=== PATIENT | male | born 1935 | race Caucasian/White ===

== ENCOUNTER 2019-02-05 06:55 | Inpatient (IN) | payer MEDICARE ==
[~2019-02-05 06:55] MED LIST: CEFAZOLIN 2 Gram 2 GM/50 ML BAG IVPB ONE; CELECOXIB 100 MG CAPSULE PO ONE; FAMOTIDINE 20MG TABLET PO ONE; MECLIZINE 25 MG TABLET PO ONE; METOCLOPRAMIDE 10 MG TABLET PO ONE; VANCOMYCIN 1GM/200ML PREMIX 1 GM/200 ML PIGGYBACK IVPB ONE
[2019-02-05 07:46] LABS: ABO GROUP B; ANTIBODY SCREEN NEGATIVE (NEGATIVE); RH TYPE POSITIVE
[2019-02-05] MEDS ORDERED: RINGERS SOLUTION,LACTATED 1,000 ML IV ONE ×2 (07:55→09:55)
[2019-02-05] MEDS ORDERED: BUPIVACAINE 0.5% W/EPI MPF 30 ML VIAL SQ ONE (09:53)
[2019-02-05] MEDS ORDERED: TRANEXAMIC ACID 1,000 MG/10 ML ML IU ONE (09:53)
[2019-02-05] MEDS ORDERED: BISACODYL 10 MG SUPP RC PRN (12:06)
[2019-02-05] MEDS ORDERED: AL HYDROX/MAG HYDROX 30ML UD PO PRN (12:06)
[2019-02-05] MEDS ORDERED: ZOLPIDEM TARTRATE 5 MG TABLET PO PRN (12:06)
[2019-02-05] MEDS ORDERED: KETOROLAC 30 MG/ML VIAL IVP ONE (12:06)
[2019-02-05] MEDS ORDERED: ONDANSETRON HCL IV 4 MG/2 ML VIAL IVP PRN (12:06)
[2019-02-05] MEDS ORDERED: TRAMADOL HCL 50 MG TABLET PO PRN (12:06)
[2019-02-05] MEDS ORDERED: ACETAMINOPHEN 325 MG TAB PO PRN (12:06)
[2019-02-05] MEDS ORDERED: ACETAMINOPHEN W/ CODEINE 300MG/30MG TABLET PO PRN ×2 (12:06)
[2019-02-05] MEDS ORDERED: DIPHENHYDRAMINE HCL 25 MG CAPSULE PO PRN (12:06)
[2019-02-05] MEDS ORDERED: HYDROMORPHONE HCL 2 MG/ML VIAL IM PRN ×2 (12:06→21:03)
[2019-02-05] MEDS ORDERED: MAGNESIUM HYDROXIDE 30 ML UDC PO PRN (12:06)
[2019-02-05] MEDS ORDERED: NALOXONE 0.4 MG/1 ML VIAL IVP PRN (12:06)
--- NOTE | 2019-02-05 15:45 | Rehab Evaluation ---
Patient Information - Patient Information Diagnosis: R hip OA Ordered Treatment: PT Evaluate and Treat Status: Initial Evaluation Surgery: Yes (THR R) Date of Surgery: 02/05/19 Past Medical/Surgical Hx: PAST MEDICAL/SURGICAL HISTORY Past Surgical History AORTIC VALVE REPLACEMENT 2016 C SCOPES BACK SX'S X'S 2 2002 AND 2007 LUMBAR PMH - Respiratory Hx Respiratory Disorders Yes Hx of SOB Yes: MILD WITH EXERTION PMH - Cardiovascular Hx Cardiovascular Disorders Yes Hx Abnormal EKG Yes Hx Irregular Heartbeat Yes: CONTROLLED WITH AMIODERONE NO THINNERS Hx of Prosthetic Valve Yes: AORTIC 2016 Exercise Tolerance Fair Comment: D/T HIP AND BACK PAIN PMH - Neuro Hx Neurological Disorders No PMH - GI Hx Gastrointestinal Disorders Yes Hx Gastroesophageal Reflux Yes: CONTROLLED WITH MEDS PMH - Hx Genitourinary Disorders Yes Hx Bladder Problem Yes: WEAK STREAM AND FREQUENCY Hx Prostate Problems Yes: POSSIBLY PMH - Endocrine Hx Endocrine Disorders Yes Hx Thyroid Disease Yes PMH - Musculoskeletal Hx Musculoskeletal Disorders Yes Hx Arthritis Yes: RIGHT HIP PMH - Psych Hx Psychiatric Problems No PMH - Hematology/Oncology Hx Hematology/Oncology Yes Disorders Hx Cancer Yes: SKIN Hx Chemotherapy No Hx Radiation Therapy No Premorbid Status: Detail (The patient was independent with all mobility prior to surgery.) Social History: Detail (The patient lives with spouse in a one story house with 4 steps at the enterance with 2 railings. The bathroom is equipped with a walk in shower, hand held shower, elevated toilet seat, shower bench. The patient stated his son is to install grab bars in the tub and there are no grab bars by the toilet. The patient has a front wheeled walker, standard cane, and wheelchair.) Precautions: [place], Fall, Other (WBAT on the R LE, THR precautions.) - Time With Patient Total Time Spent With Patient (Min): 30 Treatment Procedures: Detail (initial evaluation low complexity) Subjective Information - Subjective Information Per Patient (The patient complained of right hip pain but did not rate his pain using 0-10 pain scale.) Objective Data - Mental Status Patient Orientation: Oriented x3 - Visual Perception Appears within normal limits for therapeutic activities - ROM Not within normal limits (The patient's R hip AROM is within THR precautions.) - Strength/Tone Not within normal limits (The patient's R LE strength was not tested but is functional ie: the patient is able to lift R LE in and out of bed and ambulate. The patient's L LE strength is WNL.) - Bed Mobility Independent (The patient is independent with supine to sit. Patient was assisted with sit to supine due to complaints of lightheadedness. The patient was able to partially scoot up in bed but required assistance due to fatigue.) - Transfers Independent (The patient was independent with sit to and from stand transfer.) - Balance Balance Sitting: Good Balance Standing: Good - Sensation Intact - Gait Detail (The patient ambulated with front wheeled walker a distance of 7 feet x 1 , 50 feet x 1 WBAT on the R LE with assist with equipment.) Therapy Assessment - Therapy Assessment Detail (The patient was independent with ambulation and transfers. Feel the patient will progress well with mobility.) Problem List - Problem List Physical Therapy Problem List: Detail (1) Decreased R LE strength 2) Impaired ambulation s/p surgery) Goals - Goals Physical Therapy Goals: 1) The patient will ambulate on stairs with supervision for safety. 2) The patient will be independent with THR HEP and demonstrate good understanding of THR precautions. Prognosis - Prognosis Good Plan - Plan Physical Therapy Plan: PT 1-2 sessions for gait training on stairs and instruction in HEP.
[2019-02-05] MEDS: POTASSIUM CHLORIDE/D5-0.9%NACL 20 MEQ/1,000 ML BAG IV SCH ×2 (16:02→20:43)
[2019-02-05] MEDS: CEFAZOLIN 2 Gram 2 GM/50 ML BAG IVPB SCH (17:34)
[2019-02-05] MEDS: DOCUSATE SODIUM 100 MG CAPSULE PO SCH (21:24)
[2019-02-05] MEDS ORDERED: SIMVASTATIN 20 MG TABLET PO SCH (22:00)
[2019-02-05] MEDS ORDERED: AMIODARONE HCL 200 MG TABLET PO SCH (22:00)
[2019-02-06] MEDS: CEFAZOLIN 2 Gram 2 GM/50 ML BAG IVPB SCH ×2 (01:33→08:30)
[2019-02-06] MEDS: POTASSIUM CHLORIDE/D5-0.9%NACL 20 MEQ/1,000 ML BAG IV SCH ×3 (01:34→13:59)
[2019-02-06] MEDS: ACETAMINOPHEN W/ CODEINE 300MG/60MG TABLET PO PRN ×3 (06:14→15:45)
[2019-02-06 06:41] LABS: HEMATOCRIT 32.1 % (42.0-52.0)
[2019-02-06 06:54] LABS: BLOOD UREA NITROGEN 11 mg/dL (8-23); EST GLOMERULAR FILTRATION RATE > 60 mL/min; GLUCOSE,RANDOM 105 mg/dL (74-109)
[2019-02-06] MEDS ORDERED: PATIENT OWN MED: OMEPRAZOLE 40 MG PO SCH (07:00)
[2019-02-06] MEDS ORDERED: LEVOTHYROXINE 112 MCG PO SCH (07:00)
[2019-02-06] MEDS: DOCUSATE SODIUM 100 MG CAPSULE PO SCH (09:06)
[2019-02-06] MEDS ORDERED: TAMSULOSIN HCL 0.4 MG CAP.ER.24H PO SCH (10:00)
[2019-02-06] MEDS ORDERED: FERROUS SULFATE 325 MG TAB PO SCH (10:00)
[2019-02-06] MEDS ORDERED: RIVAROXABAN 10 MG TABLET PO SCH (10:00)
--- NOTE | 2019-02-06 10:41 | Physical Therapy Tx Note ---
Physical Therapy Tx Note - Treatment Note Tolerated: Good Total Time Spent With Patient: 25 Physical Therapy Tx Note: Detail (The patient was sitting on the edge of the bed when PT arrived. The patient ambulated with front wheeled walker a distance of 75 feet x 1 WBAT on the R LE independently. The patient ambulated on 3 steps with use of one railing and one cane using proper technique with supervision for safety.The patient demonstrated good understanding of THR precautions. The patient's THR HEP was reviewed including: ankle pumps, heel slides, hip abduction sidelying, gluteal sets, quads sets, hamstring sets. The patient has met all inpatient PT goals and is discharged from inpatient PT.) Physical Therapy Problem List: Detail (1) Decreased R LE strength 2) Impaired ambulation s/p surgery) Physical Therapy Goals: 1) The patient will ambulate on stairs with supervision for safety (Goal Met). 2) The patient will be independent with THR HEP and demonstrate good understanding of THR precautions.(Goal Met) Physical Therapy Plan: The patient has met all inpatient PT goals and is discharged from inpatient PT.
[2019-02-06] MEDS ORDERED: **ER** KETAMINE HCL 500MG/10ML VIAL IV ONE (11:08)
[2019-02-06] MEDS ORDERED: GLYCOPYRROLATE 0.2 MG/ML ML IV ONE (11:08)
[2019-02-06] MEDS ORDERED: MIDAZOLAM HCL 2MG/2ML VIAL IV ONE (11:08)
[2019-02-06] MEDS ORDERED: FENTANYL PF 100MCG/2ML VIAL IV ONE (11:08)
[2019-02-06] MEDS ORDERED: PROPOFOL 10 MG/ML VIAL IV ONE (11:08)
[2019-02-06] MEDS ORDERED: LIDOCAINE 2% MDV (20MG/ML) 20ML VIAL IV ONE (11:08)
--- NOTE | 2019-02-06 12:09 | Rehab Evaluation ---
Patient Information - Patient Information Diagnosis: R hip OA Ordered Treatment: OT Evaluate and Treat Status: Initial Evaluation Surgery: Yes (THR R) Date of Surgery: 02/05/19 Past Medical/Surgical Hx: PAST MEDICAL/SURGICAL HISTORY Past Surgical History AORTIC VALVE REPLACEMENT 2016 C SCOPES BACK SX'S X'S 2 2002 AND 2007 LUMBAR PMH - Respiratory Hx Respiratory Disorders Yes Hx of SOB Yes: MILD WITH EXERTION PMH - Cardiovascular Hx Cardiovascular Disorders Yes Hx Abnormal EKG Yes Hx Irregular Heartbeat Yes: CONTROLLED WITH AMIODERONE NO THINNERS Hx of Prosthetic Valve Yes: AORTIC 2016 Exercise Tolerance Fair Comment: D/T HIP AND BACK PAIN PMH - Neuro Hx Neurological Disorders No PMH - GI Hx Gastrointestinal Disorders Yes Hx Gastroesophageal Reflux Yes: CONTROLLED WITH MEDS PMH - Hx Genitourinary Disorders Yes Hx Bladder Problem Yes: WEAK STREAM AND FREQUENCY Hx Prostate Problems Yes: POSSIBLY PMH - Endocrine Hx Endocrine Disorders Yes Hx Thyroid Disease Yes PMH - Musculoskeletal Hx Musculoskeletal Disorders Yes Hx Arthritis Yes: RIGHT HIP PMH - Psych Hx Psychiatric Problems No PMH - Hematology/Oncology Hx Hematology/Oncology Yes Disorders Hx Cancer Yes: SKIN Hx Chemotherapy No Hx Radiation Therapy No Premorbid Status: Detail (The patient was independent with all ADLs and functional mobility prior to surgery and driving.) Social History: Detail (The patient lives with spouse in a one story house with 4 steps at the entrance with bilateral railings. The bathroom is equipped with a walk in shower, hand held shower, shower bench, and elevated toilet seat. The patient stated his son is to install grab bars in the tub and there is a wall to grab on to for assist with sit-stand from toilet. The patient has a front wheeled walker, standard cane, and wheelchair. He also has a food expeditor and a long- handled shoe horn.) Precautions: [place], Fall, Other (WBAT on the R LE, R THR precautions.) - Time With Patient Total Time Spent With Patient (Min): 23 (1 eval, 1 adl) Treatment Procedures: Detail (OT eval: low complexity) Subjective Information - Subjective Information Per Patient (Ok to see per ARISTEO Peralta. Pt agreeable to OT eval and Tx. Supine upon arrival. Pt verbalizes 2/3 precautions with verbal cueing initially, recalls 3/3 precautions at end of session.) Objective Data - Pain Pain Present: Yes Pain Scale Used: Numeric (1 - 10) (4/10, recently received pain meds) - Mental Status Patient Orientation: Oriented x3 - Visual Perception Appears within normal limits for therapeutic activities - ROM Within normal limits (B UEs) - Strength/Tone Within normal limits (B UEs) - Coordination Appears within normal limits for therapeutic activities - Bed Mobility Independent (Supine > EOB) - Transfers Independent (Sit to/from stand from EOB and RTS with supervision progressing to MOD I. OT educates Pt on modified technique to maintain hip prec. with low surfaces.) - Balance Balance Sitting: Good Balance Standing: Fair (Fair- with walker) - Sensation Intact - Gait Detail (Functional mobility within bedroom with FWW, initially with supervision (verbal instruction and demo to maintain hip prec., as Pt starts to twist R hip inward while moving walker to his R while turning), progressing to MOD I.) - ADL's/IADL's Detail (OT educated Pt on LB dress with AE and modified technique, Pt demos good follow thru and requests to purchase sock aide (OT to bring to Pt prior to DC). Therapist educates Pt on/demos safety with car TF, shower TF, FWW use, and home safety, incl. use of shower chair and long-handled sponge initially for balance safety.) Therapy Assessment - Therapy Assessment Detail (Pt tolerates session well, demos good follow thru with hip precautions and MOD I for AE and modified techniques for I/ADLs at home, good safety awareness.) Patient Education - Patient Education Teaching Topic: Equipment Use, Precautions, Risk Factors Response: Return Demonstration, Reinforcement Needed, Verbalize Understanding Teaching Method: Discussion, Demonstration Teaching Recipient: Patient Barriers To Learning: None Problem List - Problem List Physical Therapy Problem List: Detail (1) Decreased R LE strength 2) Impaired ambulation s/p surgery) Occupational Therapy Problem List: Detail (No further skilled IP OT needs identified.) Goals - Goals Physical Therapy Goals: 1) The patient will ambulate on stairs with supervision for safety (Goal Met). 2) The patient will be independent with THR HEP and demonstrate good understanding of THR precautions.(Goal Met) Occupational Therapy Goals: No further skilled IP OT needs/goals identified. Prognosis - Prognosis Good Plan - Plan Physical Therapy Plan: The patient has met all inpatient PT goals and is discharged from inpatient PT. Occupational Therapy Plan: No further skilled IP OT needs identified. DC IP OT. Thank you for this referral.
[2019-02-06] MEDS ORDERED: TRANEXAMIC ACID 1,000 MG/10 ML ML IU ONE (13:29)
[2019-02-06] MEDS ORDERED: DEXAMETHASONE 4 MG/ML 1ML VIAL IVP ONE (13:30)
[2019-02-06] MEDS ORDERED: ROPIVACAINE HCL (NAROPIN) /PF 5MG/ML 20ML VIAL IV ONE (13:30)
[2019-02-06] MEDS ORDERED: 0.9 % SODIUM CHLORIDE 10 ML VIAL IVP ONE (13:30)
--- NOTE | 2019-02-06 15:21 | Operative Note ---
DATE OF SURGERY: 02/05/2019 PREOPERATIVE DIAGNOSIS: End-stage arthrosis of the right hip. POSTOPERATIVE DIAGNOSIS: End-stage arthrosis of the right hip. OPERATION: Cementless right total hip arthroplasty using Gallagher and Nephew components with a size 58 no-hole Reflection cup, 32 mm diameter 35-degree offset liner, a size 15 high-offset cementless [place] stem with a +0 32 mm diameter cobalt chrome head. STAFF SURGEON: Julius Tomas MD ANESTHESIA: Spinal. PREPARATION: Chloraprep. INDIVIDUAL CONSIDERATIONS: None. PROCEDURE: The patient was taken to the operating room, placed supine on the operating room table. He had a successful induction of spinal anesthetic. He was then placed on his side right side up, and his right leg and hip were prepped and draped in the usual fashion. The patient had direct posterior approach to the hip. Sharp dissection carried down through skin and subcutaneous tissues. Small veins were coagulated with a Bovie. The tensor gluteal fascia was opened along the entire length of the incision, and deep retractors were placed. Short external rotators were identified, piriformis fossa removed. This exposed the posterior capsule. Posterior capsulectomy was performed. Hip was dislocated posteriorly. The patient had basically a femoral head devoid of cartilage with large marginal osteophytes. Femoral neck cut was then made freehand with an oscillating saw about a fingerbreadth above the lesser troc. A rim capsulectomy was then performed. He had a large medial wall osteophyte. A 45 mm reamer was used to remove this, and I reamed to the introitus, which was a 57 for a 58 cup. I slightly under-reamed to 56. After thorough irrigation, I impacted a size 58 no- hole Reflection cup in 20 degrees of forward flexion and 40 degrees of abduction using the extraarticular alignment guide and bony landmarks. There was solid cementless fixation. After irrigation, I placed a center cap screw and then impacted a 32 mm diameter 35-degree offset liner with the offset posteriorly and inferiorly. This gave an excellent stable acetabular construct, and this was packed off. The proximal femur was delivered into the wound, and box cutting osteotome was used to remove the metaphyseal bone. Mid stem reaming was done to a size 15. I started feeling cortex between 13-14. I broached to a 15 and followed the natural anteversion angle between 25-30 degrees. There was solid cementless fixation. After calcar reaming, I found that with a +0 head and a high-offset trial, there was excellent stability. I had full stability in extension anteriorly with extension and exercise. I actually had full stability posterior in any positioning and flexing up to knee chest and internally rotating 20-30 degrees, and 90/90 position was totally stable also. The trial was removed and after irrigation, I impacted a high-offset size 15 [place] cementless stem with solid calcar contact, solid cementless fixation. I irrigated and dried the Brock taper, impacted +0 32 mm diameter cobalt chrome head. After irrigation, I reduced the hip with similar stability. Sciatic nerve was inspected and found to be completely intact. Hemostasis was obtained with a Bovie. The patient did 1 g of tranexamic acid preoperatively. I mixed 1 g of tranexamic acid with 30 mL of saline, placed this deep to the fascia. I then infiltrated the skin with 0.5% Marcaine with epinephrine. The fascia was then closed with a running #2 quill, subcu was closed in layers with running 0 quill, skin was closed with ashley. Sterile bulky compressive SOBEIDA-type dressing was applied. The patient tolerated the procedure well. Needle and sponge counts were correct. Estimated blood loss was between 300-400 mL. We will check a hemoglobin in the morning. There were no complications. [facility]
--- NOTE | 2019-02-07 09:41 | Discharge Summary ---
DATE OF ADMISSION: 02/05/2019 DATE OF DISCHARGE: 02/06/2019 DATE OF SURGERY: 02/05/2019 HISTORY: The patient is a delightful 83-year-old male who presents with end- stage arthrosis of his right hip. He is admitted after right total hip arthroplasty. Postoperatively, he did extremely well. Hospital course was unremarkable. Discharge hemoglobin 10.1. The plan is to discharge him home in the care of his family. Home PT visiting nurse has been arranged. We will give him Tylenol #4 for pain. He will be given Xarelto followed by aspirin for DVT prophylaxis. The visiting nurse will remove his sutures in 2 weeks. He will follow up in my office in 4 weeks. FINAL DIAGNOSIS: End-stage arthrosis of right hip. SECONDARY DIAGNOSIS: Operative blood loss anemia. OPERATIONS AND PROCEDURES: Cementless right total hip arthroplasty. DISCHARGE CONDITION: Good. XI
== END 2019-02-06 16:00 | disposition home health service (06) | DRG 470 ==
LOC: MEDSURG 06:55
PROVIDERS: ADMIT Orthopaedic Surgery; ATTEND Orthopaedic Surgery
PROC: 0SR906A Replacement of Right Hip Joint with Oxidized Zirconium on Polyethylene Synthetic Substitute, Uncemented, Open Approach (ICD-10-PCS; principal; 2019-02-05 09:00)
DX: M16.11 Unilateral primary osteoarthritis, right hip (principal); I48.91 Unspecified atrial fibrillation; E78.00 Pure hypercholesterolemia, unspecified; E03.9 Hypothyroidism, unspecified
CPT/HCPCS: 80048; 85014; 85018; 86850; 86900; 86901; C1776; J2405; J3370; J3480; J7120

== ENCOUNTER 2019-02-26 12:28 | Inpatient (IN) | payer MEDICARE ==
[~2019-02-26 12:28] MED LIST changes: +ACETAMINOPHEN 1,000 MG/100 ML BTL IVPB ONE; -CELECOXIB 100 MG CAPSULE PO ONE; -FAMOTIDINE 20MG TABLET PO ONE; -MECLIZINE 25 MG TABLET PO ONE; -METOCLOPRAMIDE 10 MG TABLET PO ONE; -VANCOMYCIN 1GM/200ML PREMIX 1 GM/200 ML PIGGYBACK IVPB ONE
[2019-02-26] MEDS ORDERED: VANCOMYCIN HCL 1 GM VIAL IM ONE (12:29)
[2019-02-26] MEDS ORDERED: MIDAZOLAM HCL 2MG/2ML VIAL IV ONE (12:29)
[2019-02-26] MEDS ORDERED: CEFTRIAXONE SODIUM 2GM VIAL IM ONE (12:29)
[2019-02-26] MEDS ORDERED: KETAMINE HCL 100MG/1ML VIAL INJ ONE (12:29)
[2019-02-26] MEDS ORDERED: RINGERS SOLUTION,LACTATED 1,000 ML IV ONE ×3 (13:20→16:20)
[2019-02-26] MEDS ORDERED: BUPIVACAINE 0.5% W/EPI MPF 30 ML VIAL SQ ONE (14:57)
[2019-02-26] MEDS ORDERED: TRANEXAMIC ACID 1,000 MG/10 ML ML IU ONE (14:58)
[2019-02-26] MEDS ORDERED: DAPTOMYCIN 500 MG/VIAL IV ONE (16:00)
[2019-02-26] MEDS ORDERED: MAGNESIUM HYDROXIDE 30 ML UDC PO PRN (16:01)
[2019-02-26] MEDS ORDERED: DIPHENHYDRAMINE HCL 25 MG CAPSULE PO PRN (16:01)
[2019-02-26] MEDS ORDERED: ACETAMINOPHEN W/ CODEINE 300MG/60MG TABLET PO PRN (16:01)
[2019-02-26] MEDS ORDERED: KETOROLAC 30 MG/ML VIAL IVP PRN (16:01)
[2019-02-26] MEDS ORDERED: HYDROCODONE/APAP 10/325 TABLET PO PRN ×2 (16:01)
[2019-02-26] MEDS ORDERED: NALOXONE 0.4 MG/1 ML VIAL IVP PRN (16:01)
[2019-02-26] MEDS ORDERED: HYDROMORPHONE HCL 2 MG/ML VIAL IM PRN (16:01)
[2019-02-26] MEDS ORDERED: ACETAMINOPHEN 325 MG TAB PO PRN (16:01)
[2019-02-26] MEDS ORDERED: HYDROCODONE/APAP 5/325MG TABLET PO PRN ×2 (16:01)
[2019-02-26] MEDS ORDERED: ZOLPIDEM TARTRATE 5 MG TABLET PO PRN (16:01)
[2019-02-26] MEDS ORDERED: BISACODYL 10 MG SUPP RC PRN (16:01)
[2019-02-26] MEDS ORDERED: AL HYDROX/MAG HYDROX 30ML UD PO PRN (16:01)
[2019-02-26] MEDS ORDERED: FLU VAC QS 2019-20 (INPT, 6MO+) 60MCG/0.5ML IM ONE (17:50)
[2019-02-26] MEDS: AMIODARONE HCL 200 MG TABLET PO SCH (21:30)
[2019-02-26] MEDS: TAMSULOSIN HCL 0.4 MG CAP.ER.24H PO SCH (21:30)
[2019-02-26] MEDS: DOCUSATE SODIUM 100 MG CAPSULE PO SCH (21:30)
[2019-02-26] MEDS: ACETAMINOPHEN W/ CODEINE 300MG/60MG TABLET PO PRN (21:32)
[2019-02-27] MEDS: TRAMADOL HCL 50 MG TABLET PO PRN ×2 (00:01→12:36)
[2019-02-27] MEDS: POTASSIUM CHLORIDE/D5-0.9%NACL 20 MEQ/1,000 ML BAG IV SCH ×4 (00:04→22:29)
[2019-02-27] MEDS: ACETAMINOPHEN W/ CODEINE 300MG/60MG TABLET PO PRN ×2 (05:00→15:59)
[2019-02-27] MEDS: PANTOPRAZOLE SODIUM 40 MG TABLET PO SCH ×2 (05:02→06:32)
[2019-02-27] MEDS: LEVOTHYROXINE SOD 112 MCG TAB PO SCH ×2 (05:02→06:32)
[2019-02-27 08:09] LABS: HEMATOCRIT 29.8 % (42.0-52.0); HEMOGLOBIN 9.1 gm/dl (14.0-18.0)
[2019-02-27 08:21] LABS: BLOOD UREA NITROGEN 12 mg/dL (8-23); EST GLOMERULAR FILTRATION RATE > 60 mL/min; GLUCOSE,RANDOM 120 mg/dL (74-109)
[2019-02-27] MEDS: ONDANSETRON HCL IV 4 MG/2 ML VIAL IVP PRN ×2 (08:54→12:34)
[2019-02-27] MEDS ORDERED: 0.9 % SODIUM CHLORIDE 1,000 ML BAG IV ONE ×2 (09:22→18:58)
--- NOTE | 2019-02-27 10:44 | Rehab Evaluation ---
Patient Information - Patient Information Diagnosis: infected right total hip replacement Ordered Treatment: OT Evaluate and Treat Status: Initial Evaluation Surgery: Yes (right hip I and D and debridement) Date of Surgery: 02/26/19 Past Medical/Surgical Hx: PAST MEDICAL/SURGICAL HISTORY Surgery to Affected Area? Yes Recent Surgery? Past Surgical History [facility] 02-05-19 AORTIC VALVE REPLACEMENT 2015 C SCOPES BACK SX'S X'S 2 2002 AND 2007 LUMBAR PMH - Respiratory Hx Respiratory Disorders Yes Hx of SOB Yes: MILD WITH EXERTION PMH - Cardiovascular Hx Cardiovascular Disorders Yes Hx Abnormal EKG Yes Hx Irregular Heartbeat Yes: CONTROLLED WITH AMIODERONE NO THINNERS Hx of Prosthetic Valve Yes: AORTIC 2016 Exercise Tolerance Fair Comment: D/T HIP AND BACK PAIN PMH - Neuro Hx Neurological Disorders No PMH - GI Hx Gastrointestinal Disorders Yes Hx Gastroesophageal Reflux Yes: CONTROLLED WITH MEDS PMH - Hx Genitourinary Disorders Yes Hx Bladder Problem Yes: WEAK STREAM AND FREQUENCY Hx Prostate Problems Yes: POSSIBLY PMH - Endocrine Hx Endocrine Disorders Yes Hx Thyroid Disease Yes PMH - Musculoskeletal Hx Musculoskeletal Disorders Yes Hx Arthritis Yes: RIGHT HIP PMH - Psych Hx Psychiatric Problems No PMH - Hematology/Oncology Hx Hematology/Oncology Yes Disorders Hx Cancer Yes: SKIN Hx Chemotherapy No Hx Radiation Therapy No Premorbid Status: Detail (Pt reports spouse was responsible for all meal prep and home mgmt tasks and he was responsible for his own laundry. Spouse will be assisting with self cares and laundry after discharge.) Social History: Detail (Pt lives with spouse in a 1 story house with a walk out basement. He has 3 steps and 2 railings at the entrance. He has a tub/shower and a walk in shower with a stool that has handles on it and a hand held shower. He has an elevated toilet. There are no grab bars in the bathroom. He has a 2 wheeled walker, quad cane and standard cane as well as a sample box maker, sock aid and long shoe horn.) Precautions: [place], Fall, Other (total hip precautions) - Time With Patient Total Time Spent With Patient (Min): 30 Treatment Procedures: Detail (OT eval low complexity) Subjective Information - Subjective Information Per Patient Objective Data - Pain Pain Present: Yes (11/19) - Mental Status Patient Orientation: Oriented x3 - Visual Perception Appears within normal limits for therapeutic activities - ROM Within normal limits (Mo UE AROM WNL) - Strength/Tone Within normal limits (Mo UE strength WNL) - Coordination Appears within normal limits for therapeutic activities - Balance Balance Sitting: Good - Sensation Intact - ADL's/IADL's Detail (Pt able to recall hip precautions. Reviewed modified LE dressing techniques using sample box maker, sock aid and shoe horn. Pt was able to demonstrate donning and doffing of pants using sample box maker but he reports he knows how to use sock aid and shoe horn and does not want to review techniques. Pt reports spouse will assist as needed and she has been helping him lately.) Therapy Assessment - Therapy Assessment Detail (Pt able to demonstrate partial LE modified dressing techniques.) Problem List - Problem List Occupational Therapy Problem List: Detail (No current IP OT problems identified.) Goals - Goals Occupational Therapy Goals: No current IP OT goals identified. Prognosis - Prognosis Good Plan - Plan Occupational Therapy Plan: No further IP OT recommended. Thank you for this referral.
[2019-02-27] MEDS: FERROUS SULFATE 325 MG TAB PO SCH (10:49)
[2019-02-27] MEDS: RIVAROXABAN 10 MG TABLET PO SCH ×2 (10:49→12:36)
[2019-02-27] MEDS: DOCUSATE SODIUM 100 MG CAPSULE PO SCH ×2 (10:49→22:31)
--- NOTE | 2019-02-27 11:24 | Rehab Evaluation ---
Patient Information - Patient Information Diagnosis: infected right total hip replacement Ordered Treatment: OT Evaluate and Treat Surgery: Yes (right hip I and D and debridement) Date of Surgery: 02/26/19 Past Medical/Surgical Hx: PAST MEDICAL/SURGICAL HISTORY Surgery to Affected Area? Yes Recent Surgery? Past Surgical History [facility] 02-05-19 AORTIC VALVE REPLACEMENT 2015 C SCOPES BACK SX'S X'S 2 2002 AND 2007 LUMBAR PMH - Respiratory Hx Respiratory Disorders Yes Hx of SOB Yes: MILD WITH EXERTION PMH - Cardiovascular Hx Cardiovascular Disorders Yes Hx Abnormal EKG Yes Hx Irregular Heartbeat Yes: CONTROLLED WITH AMIODERONE NO THINNERS Hx of Prosthetic Valve Yes: AORTIC 2016 Exercise Tolerance Fair Comment: D/T HIP AND BACK PAIN PMH - Neuro Hx Neurological Disorders No PMH - GI Hx Gastrointestinal Disorders Yes Hx Gastroesophageal Reflux Yes: CONTROLLED WITH MEDS PMH - Hx Genitourinary Disorders Yes Hx Bladder Problem Yes: WEAK STREAM AND FREQUENCY Hx Prostate Problems Yes: POSSIBLY PMH - Endocrine Hx Endocrine Disorders Yes Hx Thyroid Disease Yes PMH - Musculoskeletal Hx Musculoskeletal Disorders Yes Hx Arthritis Yes: RIGHT HIP PMH - Psych Hx Psychiatric Problems No PMH - Hematology/Oncology Hx Hematology/Oncology Yes Disorders Hx Cancer Yes: SKIN Hx Chemotherapy No Hx Radiation Therapy No Premorbid Status: Detail (Pt reports spouse was responsible for all meal prep and home mgmt tasks and he was responsible for his own laundry. Spouse will be assisting with self cares and laundry after discharge.) Social History: Detail (Pt lives with spouse in a 1 story house with a walk out basement. He has 3 steps and 2 railings at the entrance. He has a tub/shower and a walk in shower with a stool that has handles on it and a hand held shower. He has an elevated toilet. There are no grab bars in the bathroom. He has a 2 wheeled walker, quad cane and standard cane as well as a readers' advisory service librarian, sock aid and long shoe horn.) Precautions: [place], Fall, Other (total hip precautions) - Time With Patient Total Time Spent With Patient (Min): 25 Treatment Procedures: Detail (Initial Evaluation, low complexity) Subjective Information - Subjective Information Per Patient (The patient had complaints of R hip pain when ambulating level 4 to 5 when using 0-10 pain scale.) Objective Data - Pain Pain Present: Yes Pain Intensity: 5 Pain Scale Used: Numeric (1 - 10) - Mental Status Patient Orientation: Oriented x3 - Visual Perception Appears within normal limits for therapeutic activities - ROM Not within normal limits (The patient's R hip is within THR precautions. All other LE AROM is WNL.) - Strength/Tone Not within normal limits (The patient's LE strength was not formally tested however was functional ie: patient was able to ambulate and lift LE's into bed.) - Bed Mobility Independent (The patient was independent with sit to supine and scooting up in bed.) - Transfers Independent (The patient was independent with sit to and from stand transfer.) - Balance Balance Sitting: Good Balance Standing: Good - Gait Detail (The patient ambulated 65 feet x 1 with front wheeled walker and WBAT on R LE with supervision/CG due to low blood pressure. The patient's gait pattern was charecterized by increased trunk flexion/foward trunk lean due to R hip pain. Patient declined ambulating a further distance and on stairs due to not feeling well.) Therapy Assessment - Therapy Assessment Detail (The patient was independent with bed mobility and transfers and required supervision with ambulation due to hypotension. Anticipate the patient will acheived independence with mobility once medically stable.) Patient Education - Patient Education Teaching Topic: Exercise/Activity (The patient was independent with THR HEP including gluteal sets, ankle pumps, quad sets, hamstring sets, hip abduction sidelying and heel slides.), Precautions (The patient indentified all three posterior THR precautions and demonstrated proper use of the precautions with functional activities.) Response: Return Demonstration Teaching Method: Discussion, Handout Teaching Recipient: Patient Barriers To Learning: Age Related Problem List - Problem List Physical Therapy Problem List: Detail (1) R hip pain 2) Decreased R LE strength) Occupational Therapy Problem List: Detail (No current IP OT problems identified.) Goals - Goals Physical Therapy Goals: 1) The patient will ambulate on stairs with supervision for safety. Occupational Therapy Goals: No current IP OT goals identified. Plan - Plan Physical Therapy Plan: PT 1-2 sessions for gait training on stairs. Occupational Therapy Plan: No further IP OT recommended. Thank you for this referral.
--- NOTE | 2019-02-27 13:42 | Operative Note ---
DATE OF SURGERY: 02/26/2019 PREOPERATIVE DIAGNOSIS: Septic right total hip arthroplasty. POSTOPERATIVE DIAGNOSIS: Low-grade sepsis. OPERATION: Irrigation, debridement, synovectomy, right total hip arthroplasty with revision of acetabular liner and femoral head and placement of 50 g of antibiotic-impregnated Stimulon beads. STAFF SURGEON: Julius Tomas MD ANESTHESIA: Spinal. PREPARATION: Chloraprep. INDIVIDUAL CONSIDERATIONS: None. PROCEDURE: The patient was taken to the operating room, placed supine on the operating room table. She had a successful induction of spinal anesthetic. He was then placed on his side right side up, and his right leg and hip were prepped and draped in the usual fashion. The patient had direct posterior approach to the hip. The previous incision was reused. Sharp dissection carried down through skin and subcutaneous tissues. Once through, there was a large miller of blood-tinged clear fluid similar to what was draining. The tensor gluteal fascia, the proximal 2/3 had dehisced and remaining sutures placed previously in the subcu and skin and in the fascia were removed. A deep culture was obtained right next to the implant, both aerobic and anaerobic. Synovectomy was performed and then the hip was dislocated posteriorly. I knocked the head off the Brock taper, dislodged the liner off the shell, and then did a synovectomy of the hip. I then went ahead and completely irrigated out the hip with about 10 liters of Betadine and saline. While this was all being irrigated out, I did a sharp debridement of all nonviable tissue. I went ahead and mixed a 50 g container of Stimulon, mixed it with 3 g of vancomycin and 2 g of Rocephin. About 5 mm beads were made using this. After finishing the irrigation, I placed a new liner which was a 35-degree offset for a size 58 cup. This was placed with the offset posteriorly to inferiorly. It was found with a trial that a +0 would be appropriate for stability. I went ahead after irrigating and drying and impacted a +0 32 mm diameter cobalt chrome head, reduced the hip and had essentially solid stability as we did preoperatively. Hemostasis was obtained basically with very limited with a Bovie and I had very excellent hemostasis. A final check for any nonviable tissue and synovitis was done and debrided out. I then went ahead and placed the antibiotic beads that I had made and placed this basically surrounding the femoral neck and deep into the hip. I then added about 20 mL, which was about 2/3 of the mixture of 30 mL of saline with 1 g of tranexamic acid into the hip which was deep to the fascia, closed the fascia with running #2 quill, subcu was closed in layers with running 0 quill, skin was closed with ashley. The skin and subcutaneous tissue was infiltrated with 30 mL of 0.5% Marcaine. Sterile bulky compressive SOBEIDA-type dressing was applied. The patient tolerated the procedure well. Needle and sponge counts were correct. Estimated blood loss was about 200 mL. We will check a hemoglobin in the morning. There were no complications. XI
[2019-02-27] MEDS: DAPTOMYCIN 500 MG/VIAL IV SCH (15:59)
[2019-02-27 16:45] LABS: HEMATOCRIT 28.9 % (42.0-52.0); HEMOGLOBIN 8.8 gm/dl (14.0-18.0)
[2019-02-27] MEDS: AMIODARONE HCL 200 MG TABLET PO SCH (22:31)
[2019-02-27] MEDS: TAMSULOSIN HCL 0.4 MG CAP.ER.24H PO SCH (22:31)
[2019-02-28 00:45] LABS: URINE APPEARANCE CLEAR; URINE BILIRUBIN NEGATIVE (NEGATIVE); URINE BLOOD NEGATIVE (NEGATIVE); URINE COLOR YELLOW; URINE GLUCOSE (UA) NEGATIVE (NEGATIVE); URINE KETONE NEGATIVE (NEGATIVE); URINE LEUKOCYTE ESTERASE NEGATIVE (NEGATIVE); URINE NITRITE NEGATIVE (NEGATIVE); URINE PROTEIN NEGATIVE (NEGATIVE); URINE UROBILINOGEN 0.2 E.U./dL (0.20 - 1.00)
[2019-02-28] MEDS: POTASSIUM CHLORIDE/D5-0.9%NACL 20 MEQ/1,000 ML BAG IV SCH ×2 (01:00→15:12)
[2019-02-28] MEDS: LEVOTHYROXINE SOD 112 MCG TAB PO SCH (06:51)
[2019-02-28] MEDS: PANTOPRAZOLE SODIUM 40 MG TABLET PO SCH (06:51)
[2019-02-28 06:56] LABS: ABSOLUTE NEUTROPHIL COUNT 5.02; BASO % 0.1 % (0-6); EOS % 1.6 % (0-6); HEMATOCRIT 28.5 % (42.0-52.0); HEMOGLOBIN 8.6 gm/dl (14.0-18.0); LYMPH % 15.6 % (16-45); MEAN CELL VOLUME 95.3 fl (81-97); MEAN CORPUSCULAR HGB CONC 30.2 g/dl (32-36); MEAN PLATELET VOLUME 10.4 fl (7.4-10.4); MONO % 11.7 % (0-9); PLATELET COUNT 275 K/uL (130-400); RED BLOOD COUNT 2.99 M/uL (4.40-5.70); RED CELL DISTRIBUTION WIDTH 14.8 % (11.5-14.5); WHITE BLOOD COUNT W/O DIFF 7.1 K/uL (4.2-12.2)
[2019-02-28 06:59] LABS: MEAN CORPUSCULAR HEMOGLOBIN 28.7 pg (27-33)
[2019-02-28 07:13] LABS: BLOOD UREA NITROGEN 9 mg/dL (8-23); EST GLOMERULAR FILTRATION RATE > 60 mL/min; GLUCOSE,RANDOM 123 mg/dL (74-109)
[2019-02-28] MEDS: FERROUS SULFATE 325 MG TAB PO SCH (09:25)
[2019-02-28] MEDS: DOCUSATE SODIUM 100 MG CAPSULE PO SCH (09:25)
[2019-02-28] MEDS: RIVAROXABAN 10 MG TABLET PO SCH (10:34)
--- NOTE | 2019-02-28 11:14 | Consult ---
Consult Order Detail - Reason for Consult Consult Date: 02/27/19 - Chief Complaint Chief Complaint: RIGHT HIP PAIN HPI Consult - History of Present Illness Admitting Diagnosis: infected right thr History of Present Illness: Nursing notified medical team of consult for hypotension following RTH revision 02/26/19. Patient developed hypotension, nausea, diaphoresis on POD #1 with subsequent saturation of SOBEIDA dressing x 3. Patient was bolused x2 with NS 500ml each time in addition to IVF D5 with 20meq potassium at 125ml/hr. Inital work up negative for acute process. Zofran was given for nausea with improvement of symptoms. Ambien and [place] were held last night. EKG unchanged with LBBB, CXR neg, troponin neg, U/A normal, stool for OB negative, Hgb 10.1 pre-op-->8.8 POD #1--> 8.6 today, echo shows s/p AVR, normal left ventricular function with EF 65-70%, mild LVH, moderate biatrial enlargement, mild mitral valve regurgitation, mild aortic valve insufficiency, moderate tricuspid valve regurgitation, mild pulmonary HTN- most likely from IV fluids and multiple bolus. Symptoms have resolved as of this am. ABD dressing on left hip with obvious sero-sang discharge. ROS Reviewed: No additional complaints except as noted below Constitutional: Reports: As per HPI Eyes: Reports: As per HPI. Denies: Eye discharge, Eye pain, Photophobia, Vision change - ENT ENT: Reports: As per HPI - Respiratory Respiratory: Reports: As per HPI. Denies: Cough, Dyspnea, Hemoptysis, Stridor, Wheezes - Cardiovascular Cardiovascular: Reports: As per HPI. Denies: Arrhythmia, Chest pain, Dyspnea on exertion, Edema, Murmurs, Orthopnea, Palpitations, Paroxysmal nocturnal dyspnea, Rheumatic Fever, Syncope - Gastrointestinal Gastrointestinal: Reports: As per HPI. Denies: Abdominal pain, Constipation, Diarrhea, Hematemesis, Hematochezia, Melena, Nausea, Vomiting - Musculoskeletal Musculoskeletal: Reports: As per HPI - Skin Skin: Reports: As per HPI - Neurological Neurological: Reports: As per HPI - Hematological/Lymphatic Hematological/Lymphatic: Reports: As per HPI Past Medical History - SOCIAL HISTORY Smoking Status: Former smoker - RESPIRATORY Hx Respiratory Disorders: Yes - CARDIOVASCULAR Hx Cardio Disorders: Yes Hx Abnormal EKG: Yes Hx Irregular Heartbeat: Yes (CONTROLLED WITH AMIODERONE NO THINNERS) Comment:: D/T HIP AND BACK PAIN - NEURO Hx Neuro Disorders: No - GI Hx GI Disorders: Yes Hx Reflux: Yes (CONTROLLED WITH MEDS) Hx of Polyps: Yes (COLON) - Hx Genitourinary Disorders: Yes Hx Bladder Problem: Yes (WEAK STREAM AND FREQUENCY) Hx Prostate Problems: Yes (POSSIBLY) - ENDOCRINE Hx Endocrine Disorders: Yes Hx Thyroid Disease: Yes - MUSCULOSKELETAL Hx Musculoskeletal Disorders: Yes Hx Arthritis: Yes (RIGHT HIP) - PSYCH Hx Psych Problems: No - HEMATOLOGY/ONCOLOGY Hx Hematology/Oncology Disorders: Yes Hx Cancer: Yes (SKIN) Hx Chemotherapy: No Hx Radiation Therapy: No Hx Blood Transfusions: Yes (POSSIBLY WITH AORTIC VALVE REPLACEMENT) Family Medical History Any Significant Family History?: Yes Family Hx Comment (NOT TO BE USED IN PLACE OF ITEMS BELOW): SISTER SEPSIS Hx Diabetes: Brother/Sister Hx Heart Disease: Brother/Sister Hx Resp Disorders: Brother/Sister H&P Meds - Home Medications and Allergies Allergies Allergy/AdvReac Type Severity Reaction Status Date / Time hydrocodone Allergy PT UNSURE Unverified 01/07/19 15:09 OF REACTION Physical Exam - Vital Signs Vital Signs: Vital Signs - Last 24 Hrs Temp Pulse Resp BP Pulse Ox 02/28/19 10:55 98.0 F 61 16 102/47 97 02/28/19 08:23 75 02/28/19 07:13 97.8 F 65 106/52 95 02/28/19 03:00 98.3 F 61 16 115/53 98 02/27/19 22:00 97.7 F 68 16 112/52 95 02/27/19 18:00 98.2 F 65 18 88/43 93 L 02/27/19 12:15 98.1 F 61 16 101/40 96 - General General Appearance: Alert, Oriented x3, Cooperative, No acute distress Limitations: No limitations - Head Head exam: Atraumatic, Normocephalic - Eye Eye exam: Normal appearance - ENT ENT exam: Mucous membranes moist - Neck Neck exam: Normal inspection - Respiratory Respiratory exam: Normal lung sounds bilaterally - Cardiovascular Cardiovascular Exam: Regular rate, Normal rhythm, Diastolic murmur Peripheral Pulses: 3+: Dorsalis Pedis (R), Dorsalis Pedis (L) - GI/Abdominal GI/Abdominal exam: Soft, Normal bowel sounds - Rectal Rectal exam: Heme (-) stool, Normal rectal tone. negative: Tenderness - Extremities Extremities exam: Normal inspection. negative: Calf tenderness, Pedal edema - Back Back exam: Reports: Normal inspection - Neurological Neurological exam: Alert, CN II-XII intact, Normal gait, Oriented X3 - Psychiatric Psychiatric exam: Normal affect, Normal mood - Skin Skin exam: Other (sero-sang saturated ABD to right hip) Results - Labs Result Diagrams: 02/28/19 06:20 02/28/19 06:30 Labs Last 24 Hours: Laboratory Results - last 24 hr 02/27/19 02/27/19 02/27/19 00:30 16:30 19:16 WBC Corrected WBC RBC Hgb 8.8 L Hct 28.9 L MCV MCH MCHC RDW Plt Count MPV Gran % Lymphocytes % Monocytes % Eosinophils % Basophils % Absolute Neutrophils Sodium Potassium Chloride Carbon Dioxide Anion Gap BUN Creatinine Estimated GFR Random Glucose Calcium Troponin T < 0.010 Urine Color Yellow Urine Appearance Clear Urine pH 6.0 Ur Specific [place] 1.020 Urine Protein Negative Urine Glucose (UA) Negative Urine Ketones Negative Urine Blood Negative Urine Nitrite Negative Urine Bilirubin Negative Urine Urobilinogen 0.2 Ur Leukocyte Esterase Negative Stool Occult Bld Scrn Cancelled Stool Occult Blood #2 Cancelled Stool Occult Blood #3 Cancelled 02/28/19 02/28/19 02/28/19 06:00 06:00 06:20 WBC Cancelled 7.1 Corrected WBC Cancelled RBC Cancelled 2.99 L Hgb Cancelled Cancelled 8.6 L Hct Cancelled Cancelled 28.5 L MCV Cancelled 95.3 MCH Cancelled 28.7 MCHC Cancelled 30.2 L RDW Cancelled 14.8 H Plt Count Cancelled 275 MPV Cancelled 10.4 Gran % Cancelled 71.0 Lymphocytes % Cancelled 15.6 L Monocytes % Cancelled 11.7 H Eosinophils % Cancelled 1.6 Basophils % Cancelled 0.1 Absolute Neutrophils Cancelled 5.02 Sodium Potassium Chloride Carbon Dioxide Anion Gap BUN Creatinine Estimated GFR Random Glucose Calcium Troponin T Urine Color Urine Appearance Urine pH Ur Specific [place] Urine Protein Urine Glucose (UA) Urine Ketones Urine Blood Urine Nitrite Urine Bilirubin Urine Urobilinogen Ur Leukocyte Esterase Stool Occult Bld Scrn Stool Occult Blood #2 Stool Occult Blood #3 02/28/19 06:30 WBC Corrected WBC RBC Hgb Hct MCV MCH MCHC RDW Plt Count MPV Gran % Lymphocytes % Monocytes % Eosinophils % Basophils % Absolute Neutrophils Sodium 137 Potassium 4.3 Chloride 105 Carbon Dioxide 26.0 Anion Gap 6.0 L BUN 9 Creatinine 1.0 Estimated GFR > 60 Random Glucose 123 H Calcium 8.7 L Troponin T Urine Color Urine Appearance Urine pH Ur Specific [place] Urine Protein Urine Glucose (UA) Urine Ketones Urine Blood Urine Nitrite Urine Bilirubin Urine Urobilinogen Ur Leukocyte Esterase Stool Occult Bld Scrn Stool Occult Blood #2 Stool Occult Blood #3 - Imaging and Cardiology Chest x-ray Status: Report reviewed (no acute process) Assessment and Plan - Assessment and Plan (1) Hypotension Current Visit: Yes Status: Acute Base Code: I95.9 - HYPOTENSION, UNSPECIFIED Comment: most likely due to expected fluid loss from incision, anesthesia, narcotic pain medications, ambien use. [place] and Ambien held overnight, pain managed with tylenol #4 and Ultram. Work-up negative for acute process. BP improved today, asymptomatic (2) Pulmonary hypertension Current Visit: Yes Status: Acute Base Code: I27.20 - PULMONARY HYPERTENSION, UNSPECIFIED Comment: echo today, mild pulmonary HTN- most likely from IV hydration and boluses yesterday, recommend DC IVF at this time (3) Acute blood loss anemia Current Visit: Yes Status: Acute Base Code: D62 - ACUTE POSTHEMORRHAGIC ANEMIA Comment: likely post surgical changes, Hgb did stabilize at 8.6, stool negative for blood. Continue Xarelto as prescribed - Disposition Disposition: Symptoms resolved. Sign off from medical standpoint
--- NOTE | 2019-02-28 11:34 | Physical Therapy Tx Note ---
Physical Therapy Tx Note - Treatment Note Tolerated: Good Total Time Spent With Patient: 25 Physical Therapy Tx Note: Detail (The patient stated that he had some pain in his R hip this morning. He was able to transfer independently out of bed to standing. He ambulated 40 feet with supervision of 1 with a front wheeled walker with WBAT on the R LE. Patient was able to negotiate 3 stairs successfully with proper technique. Patient performed the following bed exercises correctly for his HEP: hip abduction, knee flexion, glute sets, quad sets, hamstring sets, and ankle pumps. The patient was left in supine in bed with his call light and bedside table within reach, and the nursing staff was notified of his position. All therapy goals have been met at this time.) Physical Therapy Problem List: Detail (1) R hip pain 2) Decreased R LE strength) Physical Therapy Goals: 1) The patient will ambulate on stairs with supervision for safety. GOAL MET Prognosis: Good Physical Therapy Plan: Anticipate discharge this afternoon; no further inpatient therapy indicated.
[2019-02-28] MEDS: DAPTOMYCIN 500 MG/VIAL IV SCH (15:08)
--- NOTE | 2019-03-01 08:59 | RADIOLOGY REPORT ---
EXAM: CHEST HISTORY: HYPOTENSIVE. TECHNIQUE: A single view of the chest was obtained. Comparison: None. FINDINGS: The heart is not enlarged. There are post sternotomy changes. There is no acute infiltrate or vascular congestion. IMPRESSION: POSTOPERATIVE CHANGES. NO ACUTE CARDIAC OR PULMONARY ABNORMALITY. JOB NUMBER: [id number] [facility]
--- NOTE | 2019-03-01 15:42 | Discharge Summary ---
DATE OF ADMISSION: 02/26/2019 DATE OF DISCHARGE: 02/28/2019 DATE OF SURGERY: 02/26/2019 HISTORY: The patient presents with what appears to be acute sepsis after right total hip 3 weeks ago. He was admitted after irrigation, debridement, synovectomy, revision of the acetabular liner and femoral head. Postoperatively, he did well. He was a bit hypotensive after surgery which responded to fluids. His hemoglobin preoperatively was in the low 10 range and his discharge hemoglobin was stable in the high 8 range at 8.6. The plan is to discharge him home in the care of his family. Home PT and visiting nurse has been arranged. He will be given Tylenol #4 for pain. He will be given Xarelto followed by aspirin for DVT prophylaxis. He is going to be continuing to get daily IV antibiotics per Dr. Vieira's office. That will start tomorrow. I would like him to follow up in my office in 2 weeks to look at his wound. At that point, I will decide on suture removal. I do not want the visiting nurse doing that. FINAL DIAGNOSIS: Low-grade sepsis in the right total hip. SECONDARY DIAGNOSIS: None. OPERATIONS AND PROCEDURES: Irrigation, debridement, synovectomy, and revision of the acetabular liner and femoral head on the right. DISCHARGE CONDITION: Fair. XI
--- NOTE | 2019-03-05 08:30 | Medical Records Consult ---
DATE OF CONSULTATION: 02/28/2019 REASON FOR CONSULTATION: Hypotension. HISTORY OF PRESENT ILLNESS: The patient is a delightful 83-year-old gentleman with a history of aortic valve [place] back [place] [address] Duong and also has a history of paroxysmal atrial fibrillation. He follows up with Dr. Damon in [place]. He had a right hip incision and drainage performed because of an infection and during his admission, he was found to have hypotension with systolic blood pressure in the 80s. That led to a recommendation for cardiology consultation. The patient denies any chest pain, denies any palpitations, and denies any lightheadedness or dizziness. The patient's cardiac biomarkers are within normal limits. ALLERGIES: HYDROCODONE. SOCIAL HISTORY: The patient is living with his and denies any alcohol or illicit drug use. PHYSICAL EXAMINATION: GENERAL: The patient is a delightful 83-year-old gentleman who is sitting in his chair having his lunch. VITAL SIGNS: His current blood pressure was systolic 114 with diastolic of 68 mmHg and a heart rate of 63 beats per minute. His airconditioning drafting officer shows sinus rhythm with heart rates in the 60s. EKG shows intraventricular conduction delay with sinus rhythm. An echocardiogram was performed that showed normal left ventricular systolic function with slightly increased gradient across the aortic bioprosthesis. He also had mild pulmonary hypertension. HEENT: Normocephalic and atraumatic. Pupils are equal, and reactive to light. Extraocular muscles are intact. CARDIOVASCULAR: Grade 2/6 systolic ejection murmur radiating to both the carotids. No JVD. He has 1+ bilateral pedal edema. NEUROLOGIC: He has no focal neurologic deficits. LABORATORY DATA: White count 7.1, hemoglobin 8.6, hematocrit 28.5, platelet count 275. Sodium 137, potassium 4.3, chloride 105, CO2 26, BUN 9, creatinine 1.0, blood glucose 123. IMPRESSION AND PLAN: Hypotension. The patient's hypotension most likely was related to the analgesics that he would have received as well as his postoperative state. The patient has had significant improvement in his blood pressure, and blood pressure since yesterday has been in the low 100 range. The patient denies any abnormal symptoms either and currently is sitting up in chair and having his lunch. He is not on any antihypertensives at this time. The patient's echocardiography reveals normal LV function and no significant valvular pathology was identified. I do not feel the need for any further cardiac workup at this time. His hemoglobin has been low but I do not feel the need for it to be corrected with transfusion at this time. The patient will follow up with his primary clinical neuropsychologist, Dr. Damon, as an outpatient and can discuss the discontinuation of amiodarone as he does not have atrial fibrillation. The patient is not on any chronic anticoagulation and is currently on prophylactic dose of Xarelto, which can be continued for 3 days. Thank you for involving us in the management of your patient. If I could be of any further assistance, please do not hesitate to call me. VINICIOD
== END 2019-02-28 16:20 | disposition home health service (06) | DRG 468 ==
LOC: SUR 12:28 → MEDSURG 16:43 → SUR 16:43
PROVIDERS: ADMIT Orthopaedic Surgery; ATTEND Orthopaedic Surgery
PROC: 0SWA0JZ Revision of Synthetic Substitute in Right Hip Joint, Acetabular Surface, Open Approach (ICD-10-PCS; principal; 2019-02-26 14:30)
DX: T84.51XA Infection and inflammatory reaction due to internal right hip prosthesis, initial encounter (principal); Z79.2 Long term (current) use of antibiotics; I48.91 Unspecified atrial fibrillation; Z79.01 Long term (current) use of anticoagulants; D64.9 Anemia, unspecified; E78.00 Pure hypercholesterolemia, unspecified; K21.9 Gastro-esophageal reflux disease without esophagitis; E03.9 Hypothyroidism, unspecified
CPT/HCPCS: 71045; 80048; 81003; 84484; 85014; 85018; 85025; 93005; 93306; C1713; C1776; J0878; J2405; J3480; J3490; J7030; J7120